=== PATIENT | male | born 2000 | race Caucasian/White ===

== ENCOUNTER 2024-01-15 11:03 | Emergency (ER) | payer BC, SELFPAY ==
[2024-01-15] VITALS (32 sets, daily range): BP systolic 124–157; BP diastolic 79–101; PULSE 63–90; RESP 16; TEMP 36.2; O2SAT 95–100; BMI 19.8
--- NOTE | 2024-01-15 11:57 | ED.ALLEREA ---
HPI - Allergic Reaction General Date Seen: 01/15/24 Chief complaint: Allergic Reaction Stated complaint: Short of breath, dizzy Time Seen by Provider: 01/15/24 11:12 Source: patient Mode of arrival: ambulatory Limitations: no limitations History of Present Illness HPI narrative: Patient is a 23-year-old male presenting to emergency department for concern of an allergic reaction. States about 40 minutes prior to arrival he ate a muffin. After this he was feeling a scratching sensation in the back of his throat. He has a history of walnut allergy is unsure if there were any walnuts within this muffin. He took a Claritin and the scratchiness sensation went away but then he started having some mild abdominal pain and shortness of breath with some mild chest discomfort. Came to the emergency department. By the time I saw him although symptoms have gone away but he still feeling slightly lightheaded. Does state the lightheadedness is improving. States his previous allergic reactions just had a scratching sensation in his throat. Never has had hives with it. She has not noticed any rashes or hives this time. Did not use an EpiPen. No other concerns noted Related Data Home Medications ?Medication ?Instructions ?Recorded ?Confirmed No Known Home Medications 01/15/24 01/15/24 Allergies Allergy/AdvReac Type Severity Reaction Status Date / Time walnuts Allergy Severe Uncoded 01/15/24 11:07 cats Allergy Mild Uncoded 01/15/24 11:07 Review of Systems Status of ROS Reports: 10 or more systems reviewed and unremarkable except as noted in History and below Exam Narrative: Exam Narrative: Const: Well-nourished, Well-developed, in no distress Eyes: PERRL, no conjunctival injection, and symmetrical lids HENT: Atraumatic external nose and ears. Moist mucous membranes. Neck: Symmetric, trachea midline, No thyromegaly. CVS: RRR, No murmurs or gallops. Peripheral pulses 2+ and equal in all extremities RESP: Unlabored respiratory effort. Clear to auscultation bilaterally. GI: Nontender/Nondistended, No rebound or guarding. MSK:Extremities w/o deformity, Normal Active ROM Skin: Warm, Dry. No rashes or lesions. Neuro: Normal Muscle tone, No focal neurological deficits. Psych: Awake, Alert, & Oriented x3. Appropriate mood and affect. Const: Vital Signs, click to edit/add: Vital Signs - 24 hr 01/15/24 11:08 01/15/24 11:12 01/15/24 11:13 Temperature 97.1 F L Pulse Rate 74 88 Pulse Rate [Pulse Oximeter] 90 Respiratory Rate 16 Blood Pressure 154/85 H Blood Pressure [Ri ght Upper Arm] 157/101 H Pulse Oximetry 95 99 99 Oxygen Delivery Me thod Room Air 01/15/24 11:15 01/15/24 11:16 01/15/24 11:30 Temperature Pulse Rate 77 80 69 Pulse Rate [Pulse Oximeter] Respiratory Rate Blood Pressure 152/95 H 139/87 Blood Pressure [Ri ght Upper Arm] Pulse Oximetry 100 100 97 Oxygen Delivery Me thod 01/15/24 11:31 01/15/24 11:32 01/15/24 11:46 Temperature Pulse Rate 67 69 Pulse Rate [Pulse Oximeter] Respiratory Rate 16 16 Blood Pressure 133/88 139/93 H Blood Pressure [Ri ght Upper Arm] Pulse Oximetry 97 96 Oxygen Delivery Me thod 01/15/24 11:47 01/15/24 12:00 01/15/24 12:01 Temperature Pulse Rate 67 71 80 Pulse Rate [Pulse Oximeter] Respiratory Rate 16 Blood Pressure 130/89 Blood Pressure [Ri ght Upper Arm] Pulse Oximetry 96 95 95 Oxygen Delivery Me thod 01/15/24 12:02 01/15/24 12:15 01/15/24 12:16 Temperature Pulse Rate 73 70 71 Pulse Rate [Pulse Oximeter] Respiratory Rate Blood Pressure 141/100 H Blood Pressure [Ri ght Upper Arm] Pulse Oximetry 97 98 97 Oxygen Delivery Me thod 01/15/24 12:30 01/15/24 12:31 01/15/24 12:45 Temperature Pulse Rate 66 68 65 Pulse Rate [Pulse Oximeter] Respiratory Rate Blood Pressure 133/90 H Blood Pressure [Ri ght Upper Arm] Pulse Oximetry 96 96 96 Oxygen Delivery Me thod 01/15/24 12:46 01/15/24 13:00 01/15/24 13:01 Temperature Pulse Rate 63 64 66 Pulse Rate [Pulse Oximeter] Respiratory Rate Blood Pressure 129/81 127/79 Blood Pressure [Ri ght Upper Arm] Pulse Oximetry 96 95 Oxygen Delivery Me thod 01/15/24 13:15 01/15/24 13:16 01/15/24 13:30 Temperature Pulse Rate 68 69 79 Pulse Rate [Pulse Oximeter] Respiratory Rate Blood Pressure 131/84 Blood Pressure [Ri ght Upper Arm] Pulse Oximetry 97 96 97 Oxygen Delivery Me thod 01/15/24 13:31 01/15/24 13:45 01/15/24 13:46 Temperature Pulse Rate 73 73 80 Pulse Rate [Pulse Oximeter] Respiratory Rate Blood Pressure 124/80 130/92 H Blood Pressure [Ri ght Upper Arm] Pulse Oximetry 96 95 97 Oxygen Delivery Me thod 01/15/24 14:00 01/15/24 14:01 01/15/24 14:15 Temperature Pulse Rate 74 74 72 Pulse Rate [Pulse Oximeter] Respiratory Rate Blood Pressure 135/86 Blood Pressure [Ri ght Upper Arm] Pulse Oximetry 96 96 96 Oxygen Delivery Me thod 01/15/24 14:16 01/15/24 14:33 Temperature Pulse Rate 74 88 Pulse Rate [Pulse Oximeter] Respiratory Rate Blood Pressure 128/82 Blood Pressure [Ri ght Upper Arm] Pulse Oximetry 95 95 Oxygen Delivery Me thod Course Vital Signs Vital signs: Initial Vital Signs Temperature 97.1 F L 01/15/24 11:08 Temperature Source Temporal Artery Scan 01/15/24 11:08 Pulse Rate 90 01/15/24 11:08 Pulse Rhythm Regular 01/15/24 11:08 Pulse Strength 3+ Normal 01/15/24 11:08 Respiratory Rate 16 01/15/24 11:08 Blood Pressure 157/101 H 01/15/24 11:08 Blood Pressure Mean 119 H 01/15/24 11:08 Blood Pressure Position Sitting 01/15/24 11:08 Pulse Oximetry 95 01/15/24 11:08 Oxygen Delivery Method Room Air 01/15/24 11:08 Vital Signs Temperature 97.1 F L 01/15/24 11:08 Pulse Rate 90 01/15/24 11:08 Respiratory Rate 16 01/15/24 11:08 Blood Pressure 157/101 H 01/15/24 11:08 Pulse Oximetry 95 01/15/24 11:08 Oxygen Delivery Method Room Air 01/15/24 11:08 Temperature 97.1 F L 01/15/24 11:08 Pulse Rate 88 01/15/24 14:33 Respiratory Rate 16 01/15/24 12:01 Blood Pressure 128/82 11/28/24 14:16 Pulse Oximetry 95 01/15/24 14:33 Oxygen Delivery Method Room Air 01/15/24 11:08 Medications Administered Medications: Discontinued Medications Generic Name Dose Route Start Last Admin Trade Name Paula PRN Reason Stop Dose Admin Prednisone 60 mg 01/15/24 11:38 01/15/24 12:02 Prednisone 20 Mg Tablet PO 01/15/24 11:39 60 mg ONCE ONE Administration MDM - Allergic Reaction MDM Narrative Medical decision making narrative: Patient is a 23-year-old male presenting for concerns of allergic reaction. His vital signs are stable. At this point his only symptom is some mild lightheadedness that is improving. Will do an EKG. Do not believe a broad workup is necessary at this time as symptoms are all getting better. Does not appear to have anaphylaxis at this time. Will give him some prednisone. Cannot say for certain that this was an allergic reaction but will treat it as if it was. EKG showed no concerning abnormalities. Early repolarization is likely benign considering his age. After monitoring for several hours patient states his lightheadedness has improved significantly. He is feeling much better at this time. I cannot say for certain if this was allergic reaction not but I will give him femur days of prednisone and an EpiPen. He is agreeable to this plan. ECG Data Attestation: I personally reviewed and interpreted this ECG as follows: Prior ECG tracings: not available for review Interpretation: Normal sinus rhythm with rate 65 beats per minute, normal intervals, normal axis, no ST or T-wave abnormalities. There is some early repolarization Discharge Plan Discharge Clinical Impression: Allergic reaction Qualifiers: Encounter type: initial encounter Qualified Code(s): T78.40XA - Allergy, unspecified, initial encounter Patient Disposition: Home w/ Parent or Adult Condition: Improved Additional Instructions: Stay well-hydrated. Prednisone from [facility] take over the next 3 days. No need to take anything more today. If have another reaction such that are feeling like you are having throat tightness or difficulty breathing, take diphenhydramine 25-50 mg and present for re-evaluation. Do check in with timing for your allergy testing consider this current treatment. Writing a prescription for EpiPen if you need. To use with known allergy exposure and with subsequent throat tightness, all over body symptoms or difficulty breathing Prescriptions: No Action No Known Home Medications Follow Up/Referrals: Provider,Not a Local [Primary Care Provider] - Stand Alone Forms: [facility] Info Instructions
[2024-01-15] MEDS: predniSONE 20 MG TABLET 60 MG PO (12:02)
== END 2024-01-15 14:43 | disposition home or self-care (01) ==
PROVIDERS: Emergency Provider Student in an Organized Health Care Education/Training Program
DX: T78.1XXA Other adverse food reactions, not elsewhere classified, initial encounter (principal); R06.02 Shortness of breath
CPT/HCPCS: 93005; 99284; J7512